=== PATIENT | male | born 1965 | race Caucasian/White ===

== ENCOUNTER 2019-05-25 16:10 | Inpatient (IN) | payer MEDICARE ==
[~2019-05-25] VITALS: Ht 182.9 cm; Wt 96.1 kg
--- NOTE | ~2019-05-25 | EEG ---
PATIENT:JOSELIN ROMO MEDICAL RECORD: [id number] DATE OF : 63 LOCATION:D.230 D.ICU ADMISSION DATE: 05/25/19 REFERRING PHYSICIAN: INTERPRETING PHYSICIAN: CHANI ROSA MD DATE OF SERVICE: 05/26/2019 DATE OF EE05/26/2019. Room Number: 2305. Ordered by Dr. Rosa HISTORY OF PRESENT ILLNESS: A 54-year-old male admitted with report of seizure at home and another seizure in the Emergency Room. 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 Medications mentioned include phenytoin and phenobarbital. CT of head with frontal encephalomalacia and skull defect from a nail gun trauma. The patient arrives with diagnosis of hepatic encephalopathy with ammonia 99, also described as acute respiratory failure with hypoxia, ADITYA, hyponatremia, and rhabdomyolysis. PROCEDURE: EEG done as a routine bedside portable recording using the standard 10-20 international electrode system. A 16-channels was used with 17 as EKG. Photic stimulation done as activation procedure. DESCRIPTION: EEG opens with the patient unresponsive on vent with the record displaying diffuse background slowing with prominent theta at 4-5 Hz and intermixed with prominent delta seen bilaterally and non-rhythmically. No epileptiform change such as spike, polyspike or spike and wave was seen. Photic stimulation did not yield a photoparoxysmal response. IMPRESSION: Moderately abnormal EEG with diffuse background slowing consistent with moderately severe encephalopathy. No evidence of active seizure focus. TRANSINT:[id number] Voice Confirmation ID: [id number] DOCUMENT ID: [id number] CHANI ROSA MD CC: [id number] DICTATION DATE: 05/26/191721 BOLT MAN: 05/27/19 0220 ADM IN [facility] [id number] [place] [address]
[2019-05-25 17:09] LABS: BASOPHILS 0.1 % (0-2); EOSINOPHILS 0.1 % (0-7); HEMATOCRIT 49.3 % (42.0-54.0); HEMOGLOBIN 16.6 g/dL (13.5-17.5); IMMATURE GRANULOCYTES 0.5 % (0-5); LYMPHOCYTES 17.1 % (15-50); MCH 29.9 pg (26.0-34.0); MCHC 33.7 g/dL (31.0-37.0); MCV 88.7 fL (80.0-100.0); MONOCYTES 7.5 % (2-11); NEUTROPHILS 74.7 % (40-80); PLATELET COUNT 309 10x3/uL (130-400); RBC 5.56 10x6/uL (4.20-6.10); RDW 12.5 % (11.5-14.5)
[2019-05-25 17:16] LABS: APTT 38.1 SECONDS (22.8-39.4); INR 1.14 (0.85-1.17); PROTIME 14.6 SECONDS (11.6-15.0)
[2019-05-25 17:18] LABS: CALC OSMOLALITY 271 mosm/kg (275-300); CALCIUM 8.7 mg/dL (8.5-10.1); CARBON DIOXIDE 16.9 mmol/L (21.0-32.0); CHLORIDE - SERUM 97 mmol/L (98-107); CREATININE - SERUM 1.8 mg/dL (0.6-1.3); GLUCOSE 127 mg/dL (74-106); POTASSIUM - SERUM 5.3 mmol/L (3.5-5.1); SODIUM 134 mmol/L (136-145); UREA NITROGEN 18 mg/dL (7-18); eGFR NON AFRICAN AMERICAN 42 mL/min (90-120)
--- NOTE | 2019-05-25 17:28 | NUR ---
AMONIA LEVEL 99, DR PERAZA AWARE
[2019-05-25 17:34] LABS: ALBUMIN 3.8 g/dL (3.4-5.0); ALKALINE PHOSPHATASE 70 U/L (30-120); ALT (SGPT) 64 U/L (10-68); BILIRUBIN - TOTAL 0.34 mg/dL (0.2-1.3); CKMB 53.6 U/L (0.0-3.6); MAGNESIUM - SERUM 3.1 mg/dL (1.8-2.4); PROTEIN - SERUM 7.7 g/dL (6.4-8.2); THYROID STIMULATING HORMONE 0.98 uIU/mL (0.36-3.74)
[2019-05-25 17:36] LABS: CREATINE KINASE 8764 UL (21-232); TROPONIN-I < 0.017 ng/mL (0.000-0.060)
--- NOTE | 2019-05-25 17:40 | NUR ---
PT UNABLE TO SCREEN THEMSELVES FOR THE MRI BRAIN. SPOKE WITH JUMANA MONTOYA ABOUT IT AND HE SAID TO CANCEL FOR NOW.
[2019-05-25 18:17] VITALS: BP 128/82
--- NOTE | 2019-05-25 19:28 | NUR ---
REPORT TO MINA LILLY
--- NOTE | 2019-05-25 20:02 | NUR ---
LACTULOSE MEDICATION TO BE GIVEN IN ICU PER EDP ORDERS.
--- NOTE | 2019-05-25 20:35 | NUR ---
ATTEMPTED TO CALL REPORT TO ICU, NURSE UNAVAILABLE AT THIS TIME.
--- NOTE | 2019-05-25 21:50 | NUR ---
PT ARRIVED TO UNIT ACCOMPANIED BY ER STAFF. TRANSFERRED TO BED W/O DIFFICULTY. PT LETHARGIC, UNABLE TO FOLLOW COMMANDS. ASSESSMENT COMPLETE, SEE FLOWSHEET. PIV IN LEFT AC, SEE IV FLOWSHEET. WILL CONTINUE TO MONITOR.
[2019-05-25 22:00] VITALS: BP 139/91
[2019-05-25 22:02] VITALS: BP 140/94; BMI 25.1
[2019-05-25 22:18] LABS: UDS - AMPHET NEGATIVE QUAL (NEGATIVE); UDS - BARB NEGATIVE QUAL (NEGATIVE); UDS - BENZO POSITIVE QUAL (NEGATIVE); UDS - COCAINE NEGATIVE QUAL (NEGATIVE); UDS - OPIATE POSITIVE QUAL (NEGATIVE); UDS - PCP NEGATIVE QUAL (NEGATIVE); UDS - THC NEGATIVE QUAL (NEGATIVE)
[2019-05-25 22:20] LABS: BILIRUBIN NEGATIVE (NEGATIVE); GLUCOSE NEGATIVE (NEGATIVE); KETONE NEGATIVE (NEGATIVE); NITRITE NEGATIVE (NEGATIVE); SPECIFIC GRAVITY 1.015 (1.005-1.020); UROBILINOGEN NORMAL (NORMAL)
[2019-05-25 22:21] LABS: AMORPHOUS SEDIMENT >1+ /lpf (NONE SEEN); BACTERIA MANY /hpf (NEGATIVE); RED CELLS - URINE 0-5 /hpf (0-5); WHITE CELLS - URINE 0-5 /hpf (NEGATIVE)
[2019-05-25 23:00] VITALS: BP 124/80
--- NOTE | 2019-05-25 23:04 | NUR ---
DR KARISSA RAMIRES, UPDATED ON PATIENT STATUS, NEW ORDERS RECEIVED.
[2019-05-26] VITALS (24 sets, daily range): BP systolic 91–156; BP diastolic 43–99; Ht 182.9 cm; Wt 96.1 kg
--- NOTE | 2019-05-26 01:00 | NUR ---
PT BECOMING MORE ALERT, FOLLOWS COMMANDS, SPEECH SLURRED, WILL CONTINUE TO MONITOR.
[2019-05-26 01:01] LABS: CKMB 533.9 U/L (0.0-3.6); CREATINE KINASE 14461 UL (21-232)
[2019-05-26 06:00] LABS: BASOPHILS 0.1 % (0-2); EOSINOPHILS 0.1 % (0-7); HEMATOCRIT 51.4 % (42.0-54.0); HEMOGLOBIN 17.5 g/dL (13.5-17.5); IMMATURE GRANULOCYTES 0.3 % (0-5); LYMPHOCYTES 14.4 % (15-50); MCH 29.7 pg (26.0-34.0); MCV 87.1 fL (80.0-100.0); MEAN PLATELET VOLUME 9.2 fL (7.4-10.4); NEUTROPHILS 76.1 % (40-80); RDW 12.9 % (11.5-14.5); WBC 13.8 10x3/uL (4.8-10.8)
[2019-05-26 06:08] LABS: PLATELET COUNT 238 10x3/uL (130-400)
[2019-05-26 06:40] LABS: ALBUMIN 3.2 g/dL (3.4-5.0); ALKALINE PHOSPHATASE 65 U/L (30-120); BILIRUBIN - TOTAL 0.54 mg/dL (0.2-1.3); CALC OSMOLALITY 272 mosm/kg (275-300); CALCIUM 7.8 mg/dL (8.5-10.1); CHLORIDE - SERUM 102 mmol/L (98-107); GLUCOSE 106 mg/dL (74-106); PHENYTOIN (DILANTIN) 13.3 ug/mL (10.0-20.0); POTASSIUM - SERUM 4.8 mmol/L (3.5-5.1); PROTEIN - SERUM 6.9 g/dL (6.4-8.2); SODIUM 135 mmol/L (136-145); TROPONIN-I 0.056 ng/mL (0.000-0.060); UREA NITROGEN 20 mg/dL (7-18)
[2019-05-26 06:41] LABS: ALT (SGPT) 270 U/L (10-68); CARBON DIOXIDE 23.1 mmol/L (21.0-32.0); CREATININE - SERUM 1.3 mg/dL (0.6-1.3); eGFR NON AFRICAN AMERICAN 61 mL/min (90-120)
--- NOTE | 2019-05-26 07:00 | NUR ---
REC'D REPORT AND RESUMED CARE, AWAKE AND ALERT, CONFUSED RE: SITUATION, VSS, O2 VIA RA, SAT 99%, OTHER VSS, ASSESSMENT COMPLETED PER FLOWSHEET, CALL LIGHT IN REACH, SELF REPOSITIONS
[2019-05-26 07:44] LABS: CKMB 995.3 U/L (0.0-3.6)
--- NOTE | 2019-05-26 08:20 | NUR ---
TO RADIOLOGY FOR CTA VIA BED WITH PERSONNEL X1, AWAKE AND ALERT
--- NOTE | 2019-05-26 08:35 | NUR ---
BACK FROM CT, RECONNECTED TO MONITORS, VSS, CALL LIGHT IN REACH, NO NEEDS AT THIS, RESTRAINTS OFF
[2019-05-26 08:58] LABS: CREATINE KINASE 139958 UL (21-232)
--- NOTE | 2019-05-26 11:00 | NUR ---
DIARRHEA STOOL, BATH AND LINEN CHANGE COMPLETED, NO OTHER ACUTE CHANGE FROM PREVIOUS ASSESSMENT
--- NOTE | 2019-05-26 14:10 | NUR ---
ABDOMINAL ULTRASOUND COMPLETED AT BEDSIDE
--- NOTE | 2019-05-26 15:00 | NUR ---
RESTING WATCHING TV, NO SIGNS OF DISTRESS, VSS, CALL LIGHT IN REACH, VOICES NO NEEDS, ASSESSMENT COMPLETED PER FLOWSHEET
--- NOTE | 2019-05-26 16:00 | NUR ---
LARGE DIARRHEA STOOL TO DEREK PAD, SKINCARE AND LINEN CHANGE COMPLETED, I AND O'S COMPLETED
--- NOTE | 2019-05-26 17:15 | NUR ---
PULLED OUT CAN CATHETER, REPLACED WITH ATTEMPTS X1, TOLERATED WITHOUT DIFFICULTY,
--- NOTE | 2019-05-26 17:52 | NUR ---
DR HANCOCK AT BEDSIDE, ORDER GIVEN TO START CHIPS AND SIPS AND ADVANCE TOLERATED
--- NOTE | 2019-05-26 22:00 | NUR ---
CALLED [facility] ABOUT LACTULOSE ENEMA. UPDATED CONDITION. ORDERS RECIEVED TO CHANGE ENEMAS TO ORAL. PT SWALLOWS WITHOUT DIFFICULTY. N NO COUGHING OR S.S OF ASPIRATION AFTER SWALLOWING.
--- NOTE | 2019-05-26 23:00 | NUR ---
ASSESSMENT COMPLETED. PT CONTINUES TO PICK AT LINES AND CAN. REORIENTATED. REPOSITIONED FOR COMFORT.
[2019-05-27] VITALS (22 sets, daily range): BP systolic 131–170; BP diastolic 83–108
--- NOTE | 2019-05-27 01:00 | NUR ---
PATIENT CONTINUES TO BE AGITATED AND RESTLESS PULLING AT LINES AND TUBES. PROVIDED ORAL CARE, AND SIPS OF CRISTAL MIST. REPOSITIONED FOR COMPFORT.
--- NOTE | 2019-05-27 03:00 | NUR ---
REASSESSMENT COMPLETED. PT AWAKE, DISORIENTED NO SITUATION. BECOMES ARGUMENTATIVE WHEN THIS RN ATTEMPS TO REORIENT. PROVIDED EDUCATION ABOUT USE OF LINES AND TUBES.
[2019-05-27 03:25] LABS: BASOPHILS 0.3 % (0-2); EOSINOPHILS 0.1 % (0-7); HEMATOCRIT 45.9 % (42.0-54.0); HEMOGLOBIN 15.3 g/dL (13.5-17.5); IMMATURE GRANULOCYTES 0.2 % (0-5); LYMPHOCYTES 17.4 % (15-50); MCH 29.5 pg (26.0-34.0); MCHC 33.3 g/dL (31.0-37.0); MCV 88.4 fL (80.0-100.0); MEAN PLATELET VOLUME 9.3 fL (7.4-10.4); MONOCYTES 11.5 % (2-11); NEUTROPHILS 70.5 % (40-80); PLATELET COUNT 208 10x3/uL (130-400); RBC 5.19 10x6/uL (4.20-6.10); RDW 13.1 % (11.5-14.5); WBC 11.3 10x3/uL (4.8-10.8)
[2019-05-27 04:13] LABS: ALKALINE PHOSPHATASE 49 U/L (30-120); BILIRUBIN - TOTAL 0.59 mg/dL (0.2-1.3); C-REACTIVE PROTEIN 11.5 mg/dL (0.0-0.9); CALCIUM 7.5 mg/dL (8.5-10.1); CARBON DIOXIDE 21.1 mmol/L (21.0-32.0); CHLORIDE - SERUM 107 mmol/L (98-107); GLUCOSE 106 mg/dL (74-106); MAGNESIUM - SERUM 2.9 mg/dL (1.8-2.4); PHOSPHOROUS 4.5 mg/dL (2.5-4.9); POTASSIUM - SERUM 4.2 mmol/L (3.5-5.1); PROTEIN - SERUM 5.6 g/dL (6.4-8.2); SODIUM 139 mmol/L (136-145); TROPONIN-I 0.038 ng/mL (0.000-0.060); VANCOMYCIN - TROUGH 18.8 ug/mL (10.0-20.0)
[2019-05-27 04:17] LABS: ALBUMIN 2.3 g/dL (3.4-5.0); ALT (SGPT) 338 U/L (10-68); CALC OSMOLALITY 284 mosm/kg (275-300); CKMB 512.5 U/L (0.0-3.6); CREATINE KINASE 5462 UL (21-232); CREATININE - SERUM 2.2 mg/dL (0.6-1.3); UREA NITROGEN 33 mg/dL (7-18); eGFR NON AFRICAN AMERICAN 33 mL/min (90-120)
--- NOTE | 2019-05-27 05:00 | NUR ---
PATIENT AWAKE RESTLESS. PULLING AT CAN. REPOSITINED FOR COMFORT. REORIENTED TO ENVIORNMENT.
--- NOTE | 2019-05-27 06:20 | NUR ---
HEAD TO TOE ASSESSMENT COMPLETED. PATIENT CONFUSED PULLING ON TUBES AND LINES. REORIENTED TO ENVIORNMENT AND USE OF EQUIPMENT. PROVIDED COMPLETE BED BATH AND CLEANED INCONTINENET STOOL.
--- NOTE | 2019-05-27 06:22 | NUR ---
ENTERED ROOM FOUND PT HAND ON CAN TUBING PULLING. SCAND BLOOD NOTED ON PENIS. PIV FOUND IN FLOOR. RESTARTED 20 G PIV TO LT HAND. APPLIED ADHESIVE DEVICE SECURED WITH KERLEX. REPOSITIONED. PROVIDED ECDUCATION ABOUT LINES AND TUBES. PT AGITATED AND RESTLESS. APPLIED RESTRAINTS PER ORDER.
--- NOTE | 2019-05-27 08:09 | NUR ---
ALERT WITH CONFUSION NOTED WITH PATIENT WITH WRIST RESTRAINTS MONITORED AND RELEASED PER PROTOCOL. LUNGS CTA ANTERIOR AND HRRR. ABDOMEN SOFT WITH BOWEL SOUNDS NOTED. DIET HELD PENDING SWALLOW EVAL. NO PERIHERALEDEMA NOTED. ORIENTED TO SELF AND PRESIDENT. ENCOURAGED TO USE CALL LIGHT FOR ASSSIT. IV TO RIGHT HAND INFUSING AT PRESCRIBED RATE WITH NO S/S OF INFECTION/INFILTRATION.
--- NOTE | 2019-05-27 10:00 | NUR ---
ALERT AND RESOPNSIVE WITH CONTINUED CONFUSION. WRIST RESTRAINTS LOOSENED AND CHECKED PER PROTOCOL. DENIES ANY APIN OR DISCOMFORT AT THIS TIME. CAN CATH PATNET WITH MARQUEZ URINE. RINFORCED NEED NOT TO PULL AT TUBING.
--- NOTE | 2019-05-27 12:22 | NUR ---
Nutrition Follow-up: Diet advanced this AM following ST eval; no s/s of aspiration and ok for regular solids/thin liquids. Diet: Regular Wt: 187.3# (05/26); 185.1# (05/24) Last BM: 05/26 Labs noted: Ca 7.5, Mg 2.9, Alb 2.3, elev LFTs Meds noted: Lactulose, NS @ 200, Pepcid -Encourage PO intake and honor food preferences. -Offer nutrition supplements. -Monitor wt. -RD following.
--- NOTE | 2019-05-27 18:50 | NUR ---
PATIENT IN BED FIGHTING AGAINST RESTRAINTS. NO S/S OF ACUTE DISTRESS. PATIENT IS ONLY ORIENTATED TO SELF. NO C/O AT THIS TIME. PATIENT HAS IV IN LEFT FOREARM, NORMAL SALINE @ 200 ML/HR. IV IS PATENT WITHOUT REDNESS, SWELLING, OR TENDERNESS. PATIENT HAS TRANFER ORDER BUT IS STILL COMBATIVE AND IN RESTRAINTS. PATIENT IS IN SOFT WRIST RESTRIANTS TO BOTH THE LEFT AND RIGHT WRISTS. CALL LIGHT IN PLACE. WILL CONTINUE TO MONITOR.
--- NOTE | 2019-05-27 20:05 | NUR ---
PATIENT RESTING QUIETLY IN BED WATCHING TV. NO ACUTE S/S OF DISTRESS. NO C/O AT THIS TIME. PATIENT HAS IV IN LEFT FOREARM NORMAL SALINE @ 200 ML/HR. IV IS PATENT WITHOUT REDNESS, SWELLING, OR TENDERNESS. PATIENT IS STILL IN SOFT WRIST RESTRAINTS TO BOTH THE LEFT AND RIGHT WRISTS. CALL LIGHT IN PLACE. WILL CONTINUE TO MONITOR.
--- NOTE | 2019-05-27 22:00 | NUR ---
PATIENT IS RESTLESS IN BED BUT CAN BE TALKED DOWN INTO CALMING DOWN. PATIENT IS STILL CONFUSED AND DOESN'T UNDERSTAND WHY HE CAN'T GO OUT AND SMOKE. PATIENT HAS RIPPED OFF HIS LEADS AND PULSE OX, IT WAS PUT BACK ON PATIENT AFTER MUCH COAXING. RESTRAINTS WERE ADJUSTED A LITTLE TIGHTER ONCE HE WAS PULLED BACK UP IN BED. IV IS STILL IN LEFT FOREARM, NORMAL SALINE @ 200 ML/HR. IV IS PATENT. PATIENT HAS REFUSED BATH, AND SAID HE WOULD JUST WANT ONE TOMMORROW. CALL LIGHT IN PLACE. WILL CONTINUE TO MONITOR.
[2019-05-28] VITALS (8 sets, daily range): BP systolic 131–177; BP diastolic 79–135
--- NOTE | 2019-05-28 00:06 | NUR ---
PATIENT IS IN BED ASLEEP. NO S/S OF DISTRESS. NO C/O AT THIS TIME. PATIENT IV STILL IN LEFT FOREARM, NORMAL SALINE @ 200 ML/HR. IV IS PATENT. PATIENT HAS RIPPED OFF BLOOD PRESSURE CUFF, BUT SINCE BLOOD PRESSURES HAVE BEEN STABLE ALONG WITH OTHER VITAL SIGNS, PATIENT WILL JUST KEEP ON BLOOD PRESSURE CUFF. CALL LIGHT IN PLACE. WILL CONTINUE TO MONITOR.
--- NOTE | 2019-05-28 02:00 | NUR ---
PATIENT RESTING IN BED WITH EYES CLOSED. NO S/S OF ACUTE DISTRESS. NO C/O AT THIS TIME. PATIENT STILL HAS IV IN LEFT FOREARM, NORMAL SALINE @ 200 ML/HR. IV IS STILL PATENT. PATIENT IS STILL IN SOFT WRIST RESTRAINTS. CALL LIGHT IN PLACE. WILL CONTINUE TO MONITOR.
[2019-05-28 02:48] LABS: BASOPHILS 0.4 % (0-2); EOSINOPHILS 1.7 % (0-7); HEMATOCRIT 38.4 % (42.0-54.0); HEMOGLOBIN 12.7 g/dL (13.5-17.5); IMMATURE GRANULOCYTES 0.4 % (0-5); LYMPHOCYTES 29.3 % (15-50); MCH 29.4 pg (26.0-34.0); MCHC 33.1 g/dL (31.0-37.0); MCV 88.9 fL (80.0-100.0); MEAN PLATELET VOLUME 8.9 fL (7.4-10.4); MONOCYTES 9.8 % (2-11); NEUTROPHILS 58.4 % (40-80); PLATELET COUNT 177 10x3/uL (130-400); RBC 4.32 10x6/uL (4.20-6.10); RDW 13.2 % (11.5-14.5)
[2019-05-28 03:14] LABS: ALBUMIN 2.2 g/dL (3.4-5.0); ALKALINE PHOSPHATASE 41 U/L (30-120); ALT (SGPT) 318 U/L (10-68); BILIRUBIN - TOTAL 0.58 mg/dL (0.2-1.3); C-REACTIVE PROTEIN 7.5 mg/dL (0.0-0.9); CALC OSMOLALITY 284 mosm/kg (275-300); CALCIUM 7.5 mg/dL (8.5-10.1); CARBON DIOXIDE 22.9 mmol/L (21.0-32.0); CHLORIDE - SERUM 110 mmol/L (98-107); CREATININE - SERUM 2.4 mg/dL (0.6-1.3); GLUCOSE 87 mg/dL (74-106); MAGNESIUM - SERUM 2.6 mg/dL (1.8-2.4); PHOSPHOROUS 3.5 mg/dL (2.5-4.9); POTASSIUM - SERUM 4.1 mmol/L (3.5-5.1); PROTEIN - SERUM 5.3 g/dL (6.4-8.2); SODIUM 140 mmol/L (136-145); TROPONIN-I 0.029 ng/mL (0.000-0.060); UREA NITROGEN 31 mg/dL (7-18); VANCOMYCIN - TROUGH 22.2 ug/mL (10.0-20.0); eGFR NON AFRICAN AMERICAN 30 mL/min (90-120)
[2019-05-28 03:15] LABS: CREATINE KINASE 6589 UL (21-232)
[2019-05-28 03:16] LABS: CKMB 206.7 U/L (0.0-3.6)
--- NOTE | 2019-05-28 04:00 | NUR ---
PATIENT RESTING IN BED WITH EYES OPEN. NO S/S OF DISTRESS. NO C/O AT THIS TIME. PATIENT STILL HAS IV TO LEFT FOREARM, NORMAL SALINE @ 200 ML/HR. IV IS PATENT. PATIENT IS STABLE, BUT STILL CONFUSED. PATIENT IS IN SOFT RESTRAINTS TO BOTH WRISTS. CALL LIGHT IN PLACE. WILL CONTINUE TO MONITOR.
--- NOTE | 2019-05-28 06:46 | NUR ---
PATIENT AWAKE AND STILL CONFUSED. ORIENTATED ONLY TO SELF. NO S/S OF DISTRESS. NO C/O AT THIS TIME. PATIENT STATES "I WANT TO LEAVE BUT I'M BEING HELD DOWN." PATIENT WAS INSTRUCTED THAT HE WAS IN RESTRAINTS BECAUSE HE KEPT RIPPING ALL OF THE EQUIPMENT OFF OF HIM. PATIENT IS IN SOFT WRIST RESTRAINTS. IV IN LEFT FOREARM, NORMAL SALINE @ 200 ML/HR. IV IS PATENT. CALL LIGHT IN PLACE. WILL CONTINUE TO MONITOR.
--- NOTE | 2019-05-28 08:38 | NUR ---
L FA IV INFILTRATED. RESITED 20 G TO RT AC. BREAKFAST TRAY SERVED AND PT FED SELF. RESTRAINTS OFF AND PT CLIMBING OOB AND PULLING AT LINES. RESTRAINTS REAPPLIED AFTER ATTEMPTS TO REORIENT FAILED.
--- NOTE | 2019-05-28 11:36 | NUR ---
PT VOIDS 200CC. BLADDER SCAN REVEALS 250CC. REPORTED TO DR WRIGHT.
--- NOTE | 2019-05-28 13:58 | NUR ---
PT IN WITH PT. PT DID STAND UP BUT IS UNABLE TO AMB.
--- NOTE | 2019-05-28 14:15 | NUR ---
PT SITTING UP ON SIDE OF BED. INSTRUCTED TO USE CALL LIGHT.
--- NOTE | 2019-05-28 19:00 | NUR ---
PT ASSESSMENT COMPELTED AT THIS TIME, NO CHANGES NOTED FROM NURSE REPORT, PT AWAKES TO NAME BUT IS CONFUSED TO TIME, PLACE AND SITUATION. PT IS FOLLOWING COMMANDS. RESP EVEN AND NON LABORED, VSS, WILL MONITOR FOR CHANGES
--- NOTE | 2019-05-28 20:44 | NUR ---
PATIENT RESTING IN BED WITH EYES CLOSED. NO S/S OF ACUTE DISTRESS. NO C/O AT THIS TIME. PATIENT HAS IV IN RIGHT AC, NORMAL SALINE @ 200 ML/HR. IV IS PATENT WITHOUT REDNESS, SWELLING, OR TENDERNESS. PATIENT USES URINAL. PATIENT HAS REFUSED SCDS. CALL LIGHT IN PLACE WILL CONTINUE TO MONITOR.
--- NOTE | 2019-05-28 22:41 | NUR ---
PATIENT RESTING IN BED, BUT DOES GET UP TO SIT ON SIDE OF BED TO USE URINAL. NO S/S OF ACUTE DISTRESS. NO C/O AT THIS TIME. PATIENT HAS IV IN RIGHT AC, IV IS PATENT WITHOUT REDNESS, SWELLING, OR TENDERNESS. PATIENT DOESN'T UNDERSTAND WHY HE CAN'T LEAVE, AND PATIENT WAS TOLD THAT HE WAS HERE FOR ALTERED MENTAL STATUS AND HEPATIC ENCEPH. PATIENT OBEYS COMMANDS, BUT IS ORIENTATED ONLY TO SELF. BED ALARM TURNED ON. CALL LIGHT IN PLACE. WILL CONTINUE TO [facility].
[2019-05-29] VITALS (17 sets, daily range): BP systolic 106–175; BP diastolic 52–99
--- NOTE | 2019-05-29 02:00 | NUR ---
PATIENT IN BED WITH EYES CLOSED. NO S/S OF ACUTE DISTRESS. NO C/O AT THIS TIME. PATIENT HAS IV IN RIGHT AC, NORMAL SALINE @ 200 ML/HR. IV IS PATENT. CALL LIGHT IN PLACE. WILL CONTINUE TO MONITOR.
[2019-05-29 03:40] LABS: BASOPHILS 0.4 % (0-2); EOSINOPHILS 2.1 % (0-7); HEMATOCRIT 36.7 % (42.0-54.0); HEMOGLOBIN 12.1 g/dL (13.5-17.5); IMMATURE GRANULOCYTES 0.4 % (0-5); LYMPHOCYTES 35.3 % (15-50); MCH 29.2 pg (26.0-34.0); MCV 88.4 fL (80.0-100.0); MEAN PLATELET VOLUME 9.1 fL (7.4-10.4); MONOCYTES 10.2 % (2-11); NEUTROPHILS 51.6 % (40-80); PLATELET COUNT 169 10x3/uL (130-400); RBC 4.15 10x6/uL (4.20-6.10); RDW 13.2 % (11.5-14.5); WBC 7.9 10x3/uL (4.8-10.8)
[2019-05-29 04:05] LABS: ALKALINE PHOSPHATASE 40 U/L (30-120); ALT (SGPT) 321 U/L (10-68); BILIRUBIN - TOTAL 0.56 mg/dL (0.2-1.3); CALC OSMOLALITY 282 mosm/kg (275-300); CALCIUM 7.3 mg/dL (8.5-10.1); CARBON DIOXIDE 19.4 mmol/L (21.0-32.0); CHLORIDE - SERUM 110 mmol/L (98-107); CKMB 111.9 U/L (0.0-3.6); CREATINE KINASE 14988 UL (21-232); CREATININE - SERUM 2.5 mg/dL (0.6-1.3); GLUCOSE 88 mg/dL (74-106); MAGNESIUM - SERUM 2.1 mg/dL (1.8-2.4); PHOSPHOROUS 3.9 mg/dL (2.5-4.9); POTASSIUM - SERUM 3.8 mmol/L (3.5-5.1); SODIUM 140 mmol/L (136-145); UREA NITROGEN 27 mg/dL (7-18); VANCOMYCIN - RANDOM 19.2 ug/mL (10.0-20.0); eGFR NON AFRICAN AMERICAN 29 mL/min (90-120)
--- NOTE | 2019-05-29 04:25 | NUR ---
PATIENT RIPPED OUT IV. CATHETER TIP INTACT. IV ATTEMPTED AND GOTTEN BY MINA CORTÉS IN RIGHT UPPER ARM. IV NORMAL SALINE RESTARTED @ 200 ML/HR. IV IS PATENT WITHOUT REDNESS, SWELLING, OR TENDERNESS. CALL LIGHT IN PLACE. WILL CONTINUE TO MONITOR.
--- NOTE | 2019-05-29 06:00 | NUR ---
PATIENT RESTING IN BED WITH EYES CLOSED. NO S/S OF ACUTE DISTRESS. NO C/O AT THIS TIME. PATIENT HAS IV IN RIGHT UPPER ARM, NORMAL SALINE @ 200 ML/HR. IV IS PATENT WITHOUT REDNESS, SWELLING, OR TENDERNESS. CALL LIGHT IN PLACE. WILL CONTINUE TO MONITOR.
--- NOTE | 2019-05-29 07:00 | NUR ---
RECEIVED BEDSIDE REPORT ON PATIENT AND ASSUMED CARE. PATIENT ALERT AND ORIENTED X 4, SITTING ON SIDE OF BED, USING URINAL. CM - SR RATE OF 78 WITH NO ECTOPY NOTED. BBS - CLEAR AND EQUAL ON ROOM AIR, WITH SPO2 100%. ASSISTED TO BEDSIDE CHAIR, STATES LEGS ARE REALLY SORE, BREAKFAST TRAY SET UP. IV 20 GA TO RIGHT UPPER ARM PATENT WITH NO S/S OF INFILTRATION NOTED. HEAD TO TOE ASSESSMENT COMPLETED.
--- NOTE | 2019-05-29 09:18 | NUR ---
ASSISTED PATIENT BACK TO BED. VSS.
--- NOTE | 2019-05-29 11:07 | NUR ---
PATIENT RESTING QUIETLY. VSS. NO NEEDS AT THIS TIME.
--- NOTE | 2019-05-29 12:05 | NUR ---
PATIENT DISLODGED IV TO RIGHT UPPER ARM, ATTEMPTED X 2 TO RESTART IV WITH NO LUCK. PER DR. SELIN SALOMON TO DC IV FLUIDS AND MEDICATIONS WILL PLACE ON ORAL MEDS.
--- NOTE | 2019-05-29 12:15 | NUR ---
DR. SMALLWOOD AT ROOM UPDATED AND EXAMINES PATIENT.
--- NOTE | 2019-05-29 14:54 | NUR ---
IV 22 GA TO RIGHT UPPER ARM, POSITIVE BLOOD RETURN AND FLUSHES EASILY.
--- NOTE | 2019-05-29 15:00 | NUR ---
PATIENT RESTING QUIETLY, VSS. NO NEEDS AT THIS TIME.
--- NOTE | 2019-05-29 17:09 | NUR ---
PATIENT GIVEN DINNER TRAY. VSS.
--- NOTE | 2019-05-29 18:31 | NUR ---
PATIENT HIGH PEAKING THE VENT AND SHAKING HIS HEAD, SPOKE TO DR. GARCIA TO GIVE 1-2 MG VERSED Q4HPRN FOR SEDATION NEED.
--- NOTE | 2019-05-29 19:00 | NUR ---
BEDSIDE REPORT RECEIVED. PATIENT RESTING WHILE CONDUCTING REPORT. AROUSES WHEN NAME IS CALLED. DENIES NEEDS AT THIS TIME. BED ALARM ON.
--- NOTE | 2019-05-29 19:20 | NUR ---
PATIENT RESTING WITH EYES CLOSED AND UNLABORED RESPIRATIONS WHEN ENTERING THE ROOM. PATIENT AROUSES WHEN NAME IS CALLED. ALERT AND ORIENTED. ASSESSMENT PERFORMED. LUNG SOUNDS CLEAR TO AUSCULTATION WITH UNLABORED RESPIRATIONS. PATIENT HAS RIGHT UPPER ARM 22G PIV THAT IS INFUSING BICARB AT 150 ML. PATIENT HAS ACTIVE BOWEL SOUNDS. DENIES PAIN OR PROBLEMS WHEN URINATING. SCABS NOTED TO BILATERAL LOWER EXTREMETIES. BILATERAL LOWER EXTREMETIES ARE WARM TO TOUCH, SKIN TIGHT OVER CALF AREAS BILATERAL. DENIES PAIN OR DISCOMFORT AT THIS MOMENT. CALL LIGHT IS CLOSE TO PATIENT. CONTINUOUS MONTIORING IN PLACE. VITAL SIGNS ARE STABLE AT THIS TIME. CLOSE TO NURSES STATION. BED ALARM ON. CPOC.
--- NOTE | 2019-05-29 19:42 | NUR ---
NOTIFIED MINA RAYMUNDO CHARGE NURSE OF CALF MUSCLES BEING TIGHT WHEN PERFORMING ASSESSMENT. MINA RAYMUNDO CAME TO ASSESS IN ROOM. PATIENT STATES THAT THEY ARE NOT NORMALLY THIS SWOLLEN. ASSISTED PATIENT WITH REPOSITIONING BACK IN BED AFTER VOIDING 200 IN URINAL. PAD SLIGHTLY WET, CHANGED. PATIENT BACK IN BED COMFORTABLY. CPOC
--- NOTE | 2019-05-30 | NUR ---
I have reviewed this patient and I concur with the Shift Assessment completed by the Licensed Practical Nurse today this shift.
--- NOTE | 2019-05-30 01:30 | NUR ---
PATIENT UP TO BEDSIDE WITH ASSIST AND WITHOUT USING CALL LIGHT. PATIENT VOIDED APPROX 300ML YELLOW URINE NOTED. PATIENT ASSISTED BACK TO BED. ALARM SET ON BED. CALL LIGHT WITHIN REACH.
[2019-05-30 03:00] VITALS: BP 124/81
[2019-05-30 03:45] LABS: BASOPHILS 0.3 % (0-2); EOSINOPHILS 3.2 % (0-7); HEMOGLOBIN 12.5 g/dL (13.5-17.5); IMMATURE GRANULOCYTES 0.6 % (0-5); LYMPHOCYTES 31.5 % (15-50); MCH 29.4 pg (26.0-34.0); MCHC 33.8 g/dL (31.0-37.0); MCV 87.1 fL (80.0-100.0); MEAN PLATELET VOLUME 8.8 fL (7.4-10.4); MONOCYTES 10.5 % (2-11); NEUTROPHILS 53.9 % (40-80); PLATELET COUNT 158 10x3/uL (130-400); RBC 4.25 10x6/uL (4.20-6.10); WBC 7.7 10x3/uL (4.8-10.8)
[2019-05-30 04:16] LABS: ALBUMIN 1.9 g/dL (3.4-5.0); ALKALINE PHOSPHATASE 39 U/L (30-120); ALT (SGPT) 294 U/L (10-68); BILIRUBIN - TOTAL 0.44 mg/dL (0.2-1.3); CALC OSMOLALITY 287 mosm/kg (275-300); CALCIUM 7.3 mg/dL (8.5-10.1); CHLORIDE - SERUM 108 mmol/L (98-107); CREATININE - SERUM 2.5 mg/dL (0.6-1.3); GLUCOSE 109 mg/dL (74-106); MAGNESIUM - SERUM 1.8 mg/dL (1.8-2.4); PHOSPHOROUS 3.8 mg/dL (2.5-4.9); POTASSIUM - SERUM 3.6 mmol/L (3.5-5.1); PROTEIN - SERUM 4.8 g/dL (6.4-8.2); SODIUM 142 mmol/L (136-145); UREA NITROGEN 25 mg/dL (7-18); VANCOMYCIN - RANDOM 11.6 ug/mL (10.0-20.0); eGFR NON AFRICAN AMERICAN 29 mL/min (90-120)
[2019-05-30 04:21] LABS: CARBON DIOXIDE 28.3 mmol/L (21.0-32.0); CREATINE KINASE 22673 UL (21-232)
[2019-05-30 04:42] LABS: CKMB 41.3 U/L (0.0-3.6)
--- NOTE | 2019-05-30 06:02 | NUR ---
PATIENT CHG BATH GIVEN. PATIENT UP TO BEDSIDE AND ASSISTED WITH BATH. DIFFICULT TO STAND DUE TO WEAKNESS IN LEGS. COMPLETE LINEN CHANGE DONE AND PATIENT WANTED TO RETURN TO BED.
--- NOTE | 2019-05-30 07:00 | NUR ---
SLEEPING AROUSABLE TO VERBAL STIMULI, VSS, DENIES PAIN, ASSESSMENT COMPLETE PER FLOWSHEET, URINAL AT BEDSIDE, CALL LIGHT IN REACH, NO NEEDS AT THIS TIME
--- NOTE | 2019-05-30 07:30 | NUR ---
BREAKFAST TRAY TO BEDSIDE, INDEPENDENT WITH SET UP AND EATING
[2019-05-30 08:00] VITALS: BP 139/79
--- NOTE | 2019-05-30 09:30 | NUR ---
MORNING MEDS GIVEN PER MAR FLOWSHEET, TOLERATED WITHOUT DIFFICULTY
--- NOTE | 2019-05-30 10:16 | NUR ---
Nutrition follow-up: Diet: Regular PO intake ~75% of meals Labs reviewed On lactulose with multiple BM's Wt: 212# Will continue to provide food choices and honor food preferences. RDN following.
--- NOTE | 2019-05-30 11:00 | NUR ---
PHYSICAL THERAPY AT BEDSIDE, PT OOB TO CHAIR WITH MINIMAL ASSIST, TOLERATED WITHOUT DIFFICULTY, NO OTHER ACUTE CHANGE FROM PREVIOUS ASSESSMENT, DENIES PAIN, CALL LIGHT IN REACH, NO NEEDS AT THIS TIME
[2019-05-30 12:01] VITALS: BP 141/99; BP 144/99
--- NOTE | 2019-05-30 15:00 | NUR ---
ASSESSMENT COMPLETED, NO ACUTE CHANGE FROM PREVIOUS ASSESSMENT, WILL CONTINUE WITH POC
--- NOTE | 2019-05-30 17:40 | NUR ---
RECEIVED PATIENT FROM ICU. ALERT AND ORIENTED. NO C/O PAIN. NO S/S OF ACUTE DISTRESS NOTED. IV TO UPPER RIGHT ARM, SODIUM BICARB INFUSING @ 150ML/HR. SITE PATENT WITHOUT REDNESS OR SWELLING. DENIES ANY NEEDS AT THIS TIME. CALL LIGHT IN REACH. WILL CONTINUE TO MONITOR.
--- NOTE | 2019-05-30 18:23 | MORECARE ---
CASE MANAGEMENT DISCHARGE SUMMARY PATIENT: JOSELIN ROMO UNIT: [id number] ADM DATE: 05/25/19 AGE: 54 : 63 SEX: M ROOM/BED: D.2231 AUTHOR: RIN BARONE PHYSICIAN: REFERRING PHYSICIAN: HENRY WRIGHT MD DATE OF SERVICE: 05/30/19 Discharge Plan Patient Name: JOSELIN ROMO Facility: [facility]:[place] : 1965 Planned Disposition: Home Anticipated Discharge Date: Discharge Date: Expected LOS: Initial Reviewer: [email or web address] Initial Review Date: 05/25/2019 Generated: 05/30/19 7:22 pm DCP- Discharge Planning Updated by [email or web address]: Skyla Cuenca on 05/27/19 11:[address] CM met with patient regarding DC needs/plans. Correct address [address] PCP: None in years. [facility] Independent with ADL's, denies needing HHS, Rehab, SNF. Patient lives independently with "family". Patient states his environment is safe. Denies hospitalizations in past 30 days. Transportation at DC: patients states "I will walk home, it's not too far from here." DCPIA - Discharge Planning Initial Assessment Updated by [email or web address]: Skyla Cuenca on 05/30/19 6:20 pm * Is the patient Alert and Oriented? Yes * PCP No PCP * [facility]acy [facility] * Preadmission Environment Home with Family * ADLs Independent * Equipment None * Other Equipment NA * List name and contact numbers for known caregivers / representatives who currently or will assist patient after discharge: NA * Verbal permission to speak to the caregivers and representatives has been obtained from the patient. No * Community resources currently utilized None * Please name any agencies selected above. NA * Additional services required to return to the preadmission environment? No * Can the patient safely return to the preadmission environment? Yes * Has this patient been hospitalized within the prior 30 days at any hospital? No Patient Name: JOSELIN ROMO Page [phone] at 1823 All edits/amendments must be made on the electronic document DICTATION DATE: 05/30/191821 NEEDLE LOOM WEAVER: DM 05/30/191821 RPT#: [id number] DC DATE: STATUS: ADM IN [facility] [address] [place] [address] END OF REPORT
--- NOTE | 2019-05-30 18:50 | NUR ---
ALERT AND ORIENTED, RESTING IN BED WITH EYES OPEN. NO C/O PAIN. NO S/S OF ACUTE DISTRESS NOTED. DENIES ANY NEEDS AT THIS TIME. CALL LIGHT IN REACH. WILL CONTINUE TO MONITOR.
--- NOTE | 2019-05-30 19:52 | NUR ---
PATINET LYING IN BED WITH EYES CLOSED, BED IN FLAT POSITION. PATIENT OPENS EYES TO VOICES. ALERT AND ORIENTED. NO ACUTE DISTRESS NOTED AT THIS TIME. MERLINE ALARM PASSED ON PATIENT'S BED. PATIENT STATES HE HAS NO NEEDS AT THIS TIME. 5L HF NC. R UPPER ARM, RED AND HARD, IV IS INFILTRATED. WILL START NEW IV. TURNED OFF BICARB RUNNING @150. BED IN LOW POSITION, RAILS X2. CALL LIGHT AND BEDSDIE TABLE WITHIN REACH.
[2019-05-30 20:00] VITALS: BP 134/76
[2019-05-31] VITALS: BP 130/63
[2019-05-31 04:00] VITALS: BP 125/62
[2019-05-31 05:37] LABS: BASOPHILS 0.5 % (0-2); EOSINOPHILS 4.3 % (0-7); HEMATOCRIT 36.1 % (42.0-54.0); IMMATURE GRANULOCYTES 0.5 % (0-5); LYMPHOCYTES 34.2 % (15-50); MCH 28.8 pg (26.0-34.0); MCHC 33.2 g/dL (31.0-37.0); MCV 86.6 fL (80.0-100.0); MEAN PLATELET VOLUME 9.5 fL (7.4-10.4); MONOCYTES 11.9 % (2-11); NEUTROPHILS 48.6 % (40-80); PLATELET COUNT 183 10x3/uL (130-400); RBC 4.17 10x6/uL (4.20-6.10); RDW 12.8 % (11.5-14.5); WBC 8.2 10x3/uL (4.8-10.8)
[2019-05-31 05:49] LABS: ALBUMIN 1.9 g/dL (3.4-5.0); ALKALINE PHOSPHATASE 38 U/L (30-120); ALT (SGPT) 281 U/L (10-68); BILIRUBIN - TOTAL 0.47 mg/dL (0.2-1.3); CALC OSMOLALITY 287 mosm/kg (275-300); CALCIUM 7.3 mg/dL (8.5-10.1); CHLORIDE - SERUM 104 mmol/L (98-107); CREATININE - SERUM 2.5 mg/dL (0.6-1.3); GLUCOSE 89 mg/dL (74-106); MAGNESIUM - SERUM 1.8 mg/dL (1.8-2.4); PROTEIN - SERUM 4.6 g/dL (6.4-8.2); SODIUM 143 mmol/L (136-145); UREA NITROGEN 23 mg/dL (7-18); eGFR NON AFRICAN AMERICAN 29 mL/min (90-120)
[2019-05-31 06:39] LABS: POTASSIUM - SERUM 2.9 mmol/L (3.5-5.1)
[2019-05-31 06:54] LABS: CKMB 17.3 U/L (0.0-3.6); CREATINE KINASE 24740 UL (21-232)
--- NOTE | 2019-05-31 08:07 | NUR ---
REC'D IN WALKING ROUNDS AWAKE AND ALERT. RESP EVEN AND UNLABORED WITH NO DISTRESS NOTED. CAN EXPRESS NEEDS AND WANTS. NO C/O NOTED OR VOICED. ASSESSMENT COMPLETED. C/L IN REACH AT BEDSIDE.
[2019-05-31 08:27] VITALS: BP 131/45
[2019-05-31 12:04] VITALS: BP 140/85
--- NOTE | 2019-05-31 14:36 | NUR ---
PT REFUSED TO STAY IN BED OR TO SIT DOWN IN CHAIR WITH REDIRECTION GIVEN. HAS ALL FALL PRECAUTIONS IN PLACE SIGNED WAVIER FOR REFUSAL OF MERLINE ALARM.
[2019-05-31 16:48] VITALS: BP 151/90
--- NOTE | 2019-05-31 17:08 | NUR ---
I have reviewed this patient and I concur with the Shift Assessment completed by the Licensed Practical Nurse today this shift.
[2019-05-31 21:44] VITALS: BP 160/90
[2019-06-01 00:50] VITALS: BP 132/82
--- NOTE | 2019-06-01 01:08 | NUR ---
PT RESTING IN BED. EYES CLOSED. NO SIGNS OF DISTRESS. BREATHING EVEN AND UNLABORED. AROUSES TO VERBAL STIMULI. LUNG SOUNDS CLEAR. PT STATES NO NEEDS AT THIS. IV SITE LT FA DRESSING CLEAN DRY AND INTACT. NO SIGNS OF INFECTION OR INFULTRATION. BOWEL SOUNDS ACTIVEX4. BILATERAL LEGS SCABS AND SORES. WILL CONTINUE PLAN OF CARE. CALL LIGHT IN REACH. BED LOWERED AND LOCKED. BED RAILS UPX2
--- NOTE | 2019-06-01 04:21 | NUR ---
I have reviewed this patient and I concur with the Shift Assessment completed by the Licensed Practical Nurse today this shift.
[2019-06-01 05:00] LABS: BASOPHILS 0.3 % (0-2); EOSINOPHILS 5.1 % (0-7); HEMATOCRIT 37.1 % (42.0-54.0); HEMOGLOBIN 12.3 g/dL (13.5-17.5); IMMATURE GRANULOCYTES 0.6 % (0-5); LYMPHOCYTES 34.6 % (15-50); MCHC 33.2 g/dL (31.0-37.0); MCV 87.5 fL (80.0-100.0); MEAN PLATELET VOLUME 9.6 fL (7.4-10.4); MONOCYTES 12.7 % (2-11); NEUTROPHILS 46.7 % (40-80); PLATELET COUNT 182 10x3/uL (130-400); RBC 4.24 10x6/uL (4.20-6.10); RDW 12.9 % (11.5-14.5); WBC 8.7 10x3/uL (4.8-10.8)
[2019-06-01 05:33] LABS: ALBUMIN 1.9 g/dL (3.4-5.0); ALKALINE PHOSPHATASE 40 U/L (30-120); ALT (SGPT) 258 U/L (10-68); BILIRUBIN - TOTAL 0.48 mg/dL (0.2-1.3); CALC OSMOLALITY 281 mosm/kg (275-300); CALCIUM 7.1 mg/dL (8.5-10.1); CARBON DIOXIDE 30.9 mmol/L (21.0-32.0); CHLORIDE - SERUM 103 mmol/L (98-107); CREATININE - SERUM 2.6 mg/dL (0.6-1.3); GLUCOSE 92 mg/dL (74-106); MAGNESIUM - SERUM 1.5 mg/dL (1.8-2.4); POTASSIUM - SERUM 3.1 mmol/L (3.5-5.1); PROTEIN - SERUM 4.7 g/dL (6.4-8.2); SODIUM 140 mmol/L (136-145); UREA NITROGEN 22 mg/dL (7-18); eGFR NON AFRICAN AMERICAN 27 mL/min (90-120)
[2019-06-01 05:35] LABS: CREATINE KINASE 12872 UL (21-232)
[2019-06-01 06:55] VITALS: BP 140/72
[2019-06-01 09:21] VITALS: BP 138/86
--- NOTE | 2019-06-01 11:06 | NUR ---
I have reviewed this patient and I concur with the Shift Assessment completed by the Licensed Practical Nurse today this shift.
[2019-06-01 13:45] VITALS: BP 141/83
[2019-06-01 20:00] VITALS: BP 195/92
--- NOTE | 2019-06-02 01:52 | NUR ---
IN BED RESTING ALERT AND ORENTED ABLE TO VOICE NEEDS AND WANTS TO STAFF. NO IV AT START OF SHIFT NOW HAS 20GAGE TO RIGHT AC WITH BICARB AND NS AT 75ML/HR PER ORDERS. CALL LIGHT IN REACH BED LOW NO NEEDS AT THIS TIME.
[2019-06-02 04:00] VITALS: BP 118/69
[2019-06-02 05:16] LABS: BASOPHILS 0.3 % (0-2); EOSINOPHILS 5.5 % (0-7); HEMATOCRIT 37.8 % (42.0-54.0); HEMOGLOBIN 12.4 g/dL (13.5-17.5); IMMATURE GRANULOCYTES 1.4 % (0-5); LYMPHOCYTES 33.6 % (15-50); MCH 28.9 pg (26.0-34.0); MCHC 32.8 g/dL (31.0-37.0); MCV 88.1 fL (80.0-100.0); MEAN PLATELET VOLUME 9.5 fL (7.4-10.4); MONOCYTES 12.1 % (2-11); NEUTROPHILS 47.1 % (40-80); PLATELET COUNT 183 10x3/uL (130-400); RBC 4.29 10x6/uL (4.20-6.10); WBC 8.8 10x3/uL (4.8-10.8)
[2019-06-02 05:52] LABS: ALKALINE PHOSPHATASE 38 U/L (30-120); ALT (SGPT) 231 U/L (10-68); BILIRUBIN - TOTAL 0.53 mg/dL (0.2-1.3); CALC OSMOLALITY 284 mosm/kg (275-300); CALCIUM 7.2 mg/dL (8.5-10.1); CARBON DIOXIDE 34.4 mmol/L (21.0-32.0); CHLORIDE - SERUM 103 mmol/L (98-107); CREATININE - SERUM 2.6 mg/dL (0.6-1.3); GLUCOSE 101 mg/dL (74-106); MAGNESIUM - SERUM 1.6 mg/dL (1.8-2.4); PROTEIN - SERUM 4.8 g/dL (6.4-8.2); SODIUM 141 mmol/L (136-145); UREA NITROGEN 24 mg/dL (7-18); eGFR NON AFRICAN AMERICAN 27 mL/min (90-120)
[2019-06-02 05:55] LABS: POTASSIUM - SERUM 3.9 mmol/L (3.5-5.1)
[2019-06-02 06:40] LABS: CREATINE KINASE 8411 UL (21-232)
[2019-06-02 08:48] VITALS: BP 143/83
--- NOTE | 2019-06-02 09:19 | NUR ---
HE IS SETTING UP ON THE SIDE OF THE BED. HE HAD BREAKFAST. HIS HANDS AND FEET/LEGS ARE SWOLLEN. DENIES ANY PAIN.
[2019-06-02 13:01] VITALS: BP 146/86
[2019-06-02 20:00] VITALS: BP 152/66
[2019-06-03] VITALS: BP 130/71
[2019-06-03 04:00] VITALS: BP 136/77
[2019-06-03 05:16] LABS: BASOPHILS 0.5 % (0-2); EOSINOPHILS 6.8 % (0-7); HEMOGLOBIN 12.3 g/dL (13.5-17.5); IMMATURE GRANULOCYTES 1.4 % (0-5); LYMPHOCYTES 35.2 % (15-50); MCH 28.9 pg (26.0-34.0); MCHC 32.4 g/dL (31.0-37.0); MCV 89.2 fL (80.0-100.0); MEAN PLATELET VOLUME 9.5 fL (7.4-10.4); MONOCYTES 12.6 % (2-11); NEUTROPHILS 43.5 % (40-80); PLATELET COUNT 192 10x3/uL (130-400); RBC 4.26 10x6/uL (4.20-6.10); RDW 13.2 % (11.5-14.5); WBC 8.7 10x3/uL (4.8-10.8)
[2019-06-03 05:59] LABS: ALBUMIN 2.1 g/dL (3.4-5.0); ALKALINE PHOSPHATASE 43 U/L (30-120); ALT (SGPT) 194 U/L (10-68); BILIRUBIN - TOTAL 0.47 mg/dL (0.2-1.3); CALC OSMOLALITY 290 mosm/kg (275-300); CALCIUM 7.4 mg/dL (8.5-10.1); CARBON DIOXIDE 34.2 mmol/L (21.0-32.0); CHLORIDE - SERUM 107 mmol/L (98-107); CREATININE - SERUM 2.6 mg/dL (0.6-1.3); GLUCOSE 94 mg/dL (74-106); MAGNESIUM - SERUM 1.7 mg/dL (1.8-2.4); POTASSIUM - SERUM 3.9 mmol/L (3.5-5.1); PROTEIN - SERUM 4.9 g/dL (6.4-8.2); SODIUM 144 mmol/L (136-145); UREA NITROGEN 23 mg/dL (7-18); eGFR NON AFRICAN AMERICAN 27 mL/min (90-120)
[2019-06-03 06:05] LABS: CKMB 5.6 U/L (0.0-3.6); CREATINE KINASE 5466 UL (21-232)
[2019-06-03 09:45] VITALS: BP 147/88
[2019-06-03] MEDS ORDERED: DILANTIN100 MG PO (11:30)
[2019-06-03] MEDS ORDERED: ALBUTEROL2.5 MG/3 M UPD (11:30)
[2019-06-03] MEDS ORDERED: METOPROLOL TART50 MG PO (11:30)
[2019-06-03] MEDS ORDERED: CHRONULAC30 ML PO (11:32)
[2019-06-03] MEDS ORDERED: PROTONIX40 MG PO (11:33)
--- NOTE | 2019-06-03 13:01 | MORECARE ---
CASE MANAGEMENT DISCHARGE SUMMARY PATIENT: JOSELIN ROMO UNIT: [id number] ADM DATE: 05/25/19 AGE: 54 : 63 SEX: M ROOM/BED: D.2231 AUTHOR: RIN BARONE PHYSICIAN: REFERRING PHYSICIAN: HENRY WRIGHT MD DATE OF SERVICE: 06/03/19 Discharge Plan Patient Name: JOSELIN ROMO Facility: [facility]:[place] : 1965 Planned Disposition: Home Anticipated Discharge Date: Discharge Date: Expected LOS: Initial Reviewer: [email or web address] Initial Review Date: 05/25/2019 Generated: 06/03/19 2:01 pm Comments DCP- Discharge Planning Updated by [email or web address]: Sujatha Clifton on 06/03/19 11:[address] imm served and explained, he said that tiff Davidson 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 Correct address [address] PCP: None in years. Pharmacy: [facility]. Independent with ADL's, denies needing HHS, Rehab, SNF. Patient lives independently with "family". Patient states his environment is safe. Denies hospitalizations in past 30 days. Transportation at DC: patients states "I will walk home, it's not too far from here." DCPIA - Discharge Planning Initial Assessment Updated by [email or web address]: Skyla Cuenca on 05/30/19 6:20 pm * Is the patient Alert and Oriented? Yes * PCP No PCP * Pharmacy [facility] * Preadmission Environment Home with Family * ADLs Independent * Equipment None * Other Equipment NA * List name and contact numbers for known caregivers / representatives who currently or will assist patient after discharge: NA * Verbal permission to speak to the caregivers and representatives has been obtained from the patient. No * Community resources currently utilized None * Please name any agencies selected above. NA * Additional services required to return to the preadmission environment? No * Can the patient safely return to the preadmission environment? Yes * Has this patient been hospitalized within the prior 30 days at any hospital? No Coverage Notice Reviewer: [email or web address] Cristin Clifton Notice Issued Date-Time: 06/03/2019 12:50 Notice Type: IM Discharge Notice Notice Delivered To: Patient Relationship to Patient: Whale Trainer Name: Delivery Method: HAND - Hand Delivered Kristina Days: Prior Verbal Notification: Recipient Understood Notice: Yes Recipient Signature: Yes Med Rec Note Co-signed by Attending: Coverage Notice Comment: Last DP export: 05/30/19 5:23 p Patient Name: JOSELIN ROMO Page 54399 at 1301 All edits/amendments must be made on the electronic document DICTATION DATE: 06/03/19 1301 LITIGATION ATTORNEY: CARLOS 06/03/19 1301 RPT#: [id number] DC DATE: STATUS: ADM IN [facility] [address] [place] [address] END OF REPORT
--- NOTE | 2019-06-03 13:38 | MORECARE ---
CASE MANAGEMENT DISCHARGE SUMMARY PATIENT: JOSELIN ROMO UNIT: [id number] ADM DATE: 05/25/19 AGE: 54 : 63 SEX: M ROOM/BED: D.2231 AUTHOR: ABISAI,DOC PHYSICIAN: REFERRING PHYSICIAN: HENRY WRIGHT MD DATE OF SERVICE: 06/03/19 Discharge Plan Patient Name: JOSELIN ROMO Facility: [facility]:[place] : 1965 Planned Disposition: Home Anticipated Discharge Date: Discharge Date: Expected LOS: Initial Reviewer: [email or web address] Initial Review Date: 05/25/2019 Generated: 06/03/19 2:37 pm Comments DCP- Discharge Planning Updated by [email or web address]: Sujatha Clifton on 06/03/19 12:[address] CM WILL PROVIDE A TAXI FOR THE PATIENT TO GET HOME TO [address] [place] [address] THE COST IS $11.00. HE DOES NOT HAVE ANY MONEY HE ALSO DID NOT WANT A NEBULIZER HE SAID THAT HE IS NOT HAVING ANY BREATHING PROBLEMS DCP- Discharge Planning Updated by [email or web address]: Sujatha Clifton on 06/03/19 11:[address] imm served and explained, he said that tiff Davidson would be his transport driver home, but he did not know his number there is no contact information on his chart DCP- Discharge Planning Updated by [email or web address]: Skyla Cuenca on 05/27/19 11:[address] CM met with patient regarding DC needs/plans. Correct address [address] [place] [address]. PCP: None in years. [facility]acy: [facility]. Independent with ADL's, denies needing HHS, Rehab, SNF. Patient lives independently with "family". Patient states his environment is safe. Denies hospitalizations in past 30 days. Transportation at DC: patients states "I will walk home, it's not too far from here." DCPIA - Discharge Planning Initial Assessment Updated by [email or web address]: Skyla Cuenca on 05/30/19 6:20 pm * Is the patient Alert and Oriented? Yes * PCP No PCP * [facility] * Preadmission Environment Home with Family * ADLs Independent * Equipment None * Other Equipment NA * List name and contact numbers for known caregivers / representatives who currently or will assist patient after discharge: NA * Verbal permission to speak to the caregivers and representatives has been obtained from the patient. No * Community resources currently utilized None * Please name any agencies selected above. NA * Additional services required to return to the preadmission environment? No * Can the patient safely return to the preadmission environment? Yes * Has this patient been hospitalized within the prior 30 days at any hospital? No Coverage Notice Reviewer: [id number] Cristin Clifton Notice Issued Date-Time: 06/03/2019 12:50 Notice Type: IM Discharge Notice Notice Delivered To: Patient Relationship to Patient: Director Of Health Care Marketing Name: Delivery Method: HAND - Hand Delivered Kristina Days: Prior Verbal Notification: Recipient Understood Notice: Yes Recipient Signature: Yes Med Rec Note Co-signed by Attending: Coverage Notice Comment: Last DP export: 06/03/19 12:01 p Patient Name: JOSELIN ROMO Page [id number] at 1338 All edits/amendments must be made on the electronic document DICTATION DATE: 06/03/197 ALUMINUM SIDING INSTALLER: CARLOS 06/03/19 1337 RPT#: [id number] DC DATE: STATUS: ADM IN [facility] [address] [place] [address] END OF REPORT
[2019-06-03 13:53] VITALS: BP 187/91
--- NOTE | 2019-06-03 14:18 | NUR ---
IV OUT, DISCHARGE PAPERWORK GONE OVER. LEFT VIA WHEELCHAIR TO THE ER, LEFT IN A TAXI PROVIDED BY [facility].
--- NOTE | 2019-06-03 16:25 | MORECARE ---
CASE MANAGEMENT DISCHARGE SUMMARY PATIENT: JOSELIN ROMO UNIT: [id number] ADM DATE: 05/25/19 AGE: 54 : 63 SEX: M ROOM/BED: D.2231 AUTHOR: ABISAI,DOC PHYSICIAN: REFERRING PHYSICIAN: HENRY WRIGHT MD DATE OF SERVICE: 06/03/19 Discharge Plan Patient Name: JOSELIN ROMO Facility: [facility]:[place] : 1965 Planned Disposition: Home Anticipated Discharge Date: Discharge Date: 06/03/2019 Expected LOS: 0 Initial Reviewer: [email or web address] Initial Review Date: 05/25/2019 Generated: 06/03/19 5:25 pm Comments DCP- Discharge Planning Updated by [email or web address]: Sujatha Clifton on 06/03/19 12:[address] CM WILL PROVIDE A TAXI FOR THE PATIENT TO GET HOME TO [address] [place] [address] THE COST IS $11.00. HE DOES NOT HAVE ANY MONEY HE ALSO DID NOT WANT A NEBULIZER HE SAID THAT HE IS NOT HAVING ANY BREATHING PROBLEMS DCP- Discharge Planning Updated by [email or web address]: Sujatha Clifton on 06/03/19 11:[address] imm served and explained, he said that tiff Davidson would be his local intermodal truck driver home, but he did not know his number there is no contact information on his chart DCP- Discharge Planning Updated by [email or web address]: Skyla Cuenca on 05/27/19 11:[address] CM met with patient regarding DC needs/plans. Correct address [address] [place] [address]. PCP: None in years. [facility]acy: [facility]. Independent with ADL's, denies needing HHS, Rehab, SNF. Patient lives independently with "family". Patient states his environment is safe. Denies hospitalizations in past 30 days. Transportation at DC: patients states "I will walk home, it's not too far from here." DCPIA - Discharge Planning Initial Assessment Updated by [email or web address]: Skyla Cuenca on 05/30/19 6:20 pm * Is the patient Alert and Oriented? Yes * PCP No PCP * [facility] * Preadmission Environment Home with Family * ADLs Independent * Equipment None * Other Equipment NA * List name and contact numbers for known caregivers / representatives who currently or will assist patient after discharge: NA * Verbal permission to speak to the caregivers and representatives has been obtained from the patient. No * Community resources currently utilized None * Please name any agencies selected above. NA * Additional services required to return to the preadmission environment? No * Can the patient safely return to the preadmission environment? Yes * Has this patient been hospitalized within the prior 30 days at any hospital? No Coverage Notice Reviewer: [email or web address] Cristin Clifton Notice Issued Date-Time: 06/03/2019 12:50 Notice Type: IM Discharge Notice Notice Delivered To: Patient Relationship to Patient: Train Driver Name: Delivery Method: HAND - Hand Delivered Kristina Days: Prior Verbal Notification: Recipient Understood Notice: Yes Recipient Signature: Yes Med Rec Note Co-signed by Attending: Coverage Notice Comment: Last DP export: 06/03/19 12:38 p Patient Name: JOSELIN ROMO Page [phone] at 1625 All edits/amendments must be made on the electronic document DICTATION DATE: 06/03/19 1625 HOME CARE COMPANION: CARLOS 06/03/19 1625 RPT#: [id number] DC DATE:06/03/19 STATUS: DIS IN [facility] [address] [place] [address] END OF REPORT
== END 2019-06-03 14:19 | disposition home or self-care (01) | DRG 441 ==
LOC: D.ER 16:10 → D.MS 19:39 → D.ICU 19:39 → D.MS 05-30 17:37
PROVIDERS: Family Medicine; Internal Medicine Nephrology; ADMIT Family Medicine; ATTEND Family Medicine
DX: K72.90 Hepatic failure, unspecified without coma (principal); G93.41 Metabolic encephalopathy; J96.01 Acute respiratory failure with hypoxia; J69.0 Pneumonitis due to inhalation of food and vomit; E43 Unspecified severe protein-calorie malnutrition; M62.82 Rhabdomyolysis; E87.1 Hypo-osmolality and hyponatremia; N17.9 Acute kidney failure, unspecified; G40.909 Epilepsy, unspecified, not intractable, without status epilepticus; Z68.25 Body mass index [BMI] 25.0-25.9, adult